=== PATIENT | male | born 1990 | race Caucasian/White ===

== ENCOUNTER 2019-07-27 07:17 | Emergency (ER) | payer SELFPAY ==
--- NOTE | 2019-07-27 08:43 | EDM.PDOC ---
ED HPI GENERAL MEDICAL PROBLEM - General Chief Complaint: Upper Extremity Injury/Pain Stated Complaint: LT HAND MIDDLE FINGER INJURY Time Seen by Provider: 07/27/19 07:56 Source of Information: Reports: Patient, RN Notes Reviewed - History of Present Illness INITIAL COMMENTS - FREE TEXT/NARRATIVE: 29 yr old male fell out of or off of a truck yesterday injuring L middle finger. Continued pain, swelling PIP area of L middle finger. No other significant pain or injury. No LOC, no chest pain or difficulty breathing. Left Finger-Middle Pain Score (Numeric/FACES): 8 - Related Data Allergies Allergy/AdvReac Type Severity Reaction Status Date / Time No Known Allergies Allergy Verified 07/27/19 07:29 Home Meds: Home Meds Acetaminophen/HYDROcodone [Ulm 325-5 MG] 1 tab PO Q6H PRN #14 tablet 07/27/19 [Rx] Past Medical History HEENT History: Reports: None Cardiovascular History: Reports: None Respiratory History: Reports: None Gastrointestinal History: Reports: None Genitourinary History: Reports: None Neurological History: Reports: None Psychiatric History: Reports: None Endocrine/Metabolic History: Reports: None Hematologic History: Reports: None Immunologic History: Reports: None Oncologic (Cancer) History: Reports: None Dermatologic History: Reports: None - Past Surgical History Head Surgeries/Procedures: Reports: None Musculoskeletal Surgical History: Reports: Other (See Below) Other Musculoskeletal Surgeries/Procedures:: Knee surgery Social & Family History - Tobacco Use Smoking Status *Q: Never Smoker - Caffeine Use Caffeine Use: Reports: None - Alcohol Use Date of Last Drink: 07/26/19 Time of Last Drink: 23:00 - Recreational Drug Use Recreational Drug Use: No Review of Systems - Review of Systems Review Of Systems: See Below Constitutional: Reports: No Symptoms Eyes: Reports: No Symptoms Ears: Reports: No Symptoms Nose: Reports: No Symptoms Mouth/Throat: Reports: No Symptoms Respiratory: Denies: Shortness of Breath, Pleuritic Chest Pain Cardiovascular: Denies: Chest Pain GI/Abdominal: Denies: Abdominal Pain, Nausea, Vomiting Musculoskeletal: Reports: Joint Pain (L middle finger) Neurological: Reports: No Symptoms ED EXAM, GENERAL - Physical Exam Exam: See Below General Appearance: Alert, Mild Distress Head: Atraumatic Neck: Supple Respiratory/Chest: No Respiratory Distress Extremities: Other (Pain, swelling, tenderness proximal L middle finger, hand otherwise nontender) Neurological: No Motor/Sensory Deficits Skin Exam: Warm, Dry Course - Vital Signs Last Recorded V/S: Last Vital Signs Temp 98.3 F 07/27/19 07:23 Pulse 100 07/27/19 07:23 Resp 20 07/27/19 07:23 BP 133/92 H 07/27/19 07:23 Pulse Ox 98 07/27/19 07:23 - Re-Assessments/Exams Free Text/Narrative Re-Assessment/Exam: 07/27/19 12:24 X rays of finger show fx of distal prox. phalanx, see Radiology report for details. Rx with Alum finger splint. Departure - Departure Time of Disposition: 08:36 Disposition: Home, Self-Care 01 Condition: Fair Clinical Impression: Fracture of finger of left hand - Discharge Information Prescriptions: Acetaminophen/HYDROcodone [Ulm 325-5 MG] 1 tab PO Q6H PRN #14 tablet PRN Reason: Pain Instructions: Finger Fracture, Adult, [id number], Cast or Splint Care, Adult Referrals: PCP,None [Primary Care Provider] - Forms: ED Department Discharge Additional Instructions: Aluminum finger splint. Ice packs and elevation for swelling. Tylenol or ibuprofen for mild to moderate pain or hydrocodone if needed for severe pain. Prescription for hydrocodone has been sent electronically to [facility] [place] [id number]. They are open this afternoon from 12 noon to [address] or work when taking hydrocodone. See Dr Honeycutt Orthopedist at [facility] located here at our [facility] clinic. Call [phone] for appointment. Sepsis Event Note - Evaluation Sepsis Screening Result: No Definite Risk - Focused Exam Vital Signs: Vital Signs Temp Pulse Resp BP Pulse Ox 07/27/19 07:23 98.3 F 100 20 133/92 H 98 Date Exam was Performed: 07/27/19 Time Exam was Performed: 12:23
--- NOTE | 2019-07-27 09:40 | CR ---
Left finger: 4 views centered to the left 3rd finger were obtained. Comparison: No previous finger study. Mildly displaced and mildly comminuted fracture is noted within the distal aspect of the proximal phalanx of the 3rd digit. Articular extension is noted. Soft tissue swelling is present. No additional fracture or other bony abnormality is appreciated. Impression: 1. Fracture with mild comminution, displacement and articular extension as noted above. 2. Soft tissue swelling. Diagnostic code #3 This report was dictated in MDT
== END 2019-07-27 08:46 | disposition home or self-care (01) ==
LOC: JD.ED 07:17
DX: S62.633A Displaced fracture of distal phalanx of left middle finger, initial encounter for closed fracture (principal); X58.XXXA Exposure to other specified factors, initial encounter
CPT/HCPCS: 73140-26-F2; 73140-F2; 99283; 99283-25